=== PATIENT | male | born 1995 | race Caucasian/White ===

== ENCOUNTER 2018-08-13 21:18 | Emergency (ER) | payer MEDICAID, OTHER ==
[~2018-08-13] VITALS: Ht 160 cm; Wt 62.6 kg
[2018-08-13] MEDS ORDERED: ACETAMINOPHEN ES 500 MG TABLET PO ONE (21:30)
[2018-08-13] MEDS ORDERED: IBUPROFEN 600 MG TABLET PO ONE ×2 (21:30→21:50)
[2018-08-13] MEDS ORDERED: IV NS 0.9% 1,000 ML BAG IV ONE (21:30)
--- NOTE | 2018-08-13 21:40 | NUR ---
PT PRESENTED TO THE ER WITH A C/O UNWITNESSED SYNCOPE. PT IS NOT SURE IF HE HIT HIS HEAD OR NOT. PT IS AA&O X4. PT IS ON THE MONITOR AND CONTINUOUS PULSE OX. 20G IV LAC STARTED. BLOOD WAS DRAWN AND SENT TO LAB.
[2018-08-13 21:47] LABS: BASOPHILS % (AUTO) 0.5 % (0.0-2.0); EOSINOPHILS % (AUTO) 0.2 % (0.0-6.0); HEMATOCRIT 46 % (39-51); HEMOGLOBIN 15.9 g/dL (13.5-17.5); LYMPHOCYTES # (AUTO) 0.8 /CMM (0.8-4.8); LYMPHOCYTES % (AUTO) 11.3 % (20.0-44.0); MEAN CORPUSCULAR HGB CONC 35 g/dl (31.0-36.0); MEAN CORPUSCULAR VOLUME 80 fL (80-96); MONOCYTES # (AUTO) 1.1 /CMM (0.1-1.30); MONOCYTES % (AUTO) 15.8 % (2.0-12.0); NEUTROPHILS # (AUTO) 5.1 /CMM (1.8-8.9); NEUTROPHILS % (AUTO) 72.2 % (43.0-81.0); PLATELET COUNT (AUTO) 202 /CMM (150-450)
[2018-08-13] MEDS ORDERED: ACETAMINOPHEN ES 500 MG TABLET ONE (21:50)
[2018-08-13 21:55] LABS: CALCIUM, SERUM 9.8 mg/dL (8.5-10.1); CREATININE 1.1 mg/dL (0.6-1.3); POTASSIUM 3.8 mmol/L (3.5-5.1)
[2018-08-13 22:01] LABS: ALBUMIN 4.8 g/dL (3.4-5.0); BILIRUBIN,DIRECT 0.1 mg/dL (0.0-0.2); BILIRUBIN,TOTAL 0.6 mg/dL (0.2-1.0); TOTAL PROTEIN, SERUM 8.8 g/dL (6.4-8.2)
[2018-08-13 23:35] VITALS: BP 128/85
== END 2018-08-13 23:36 | disposition home or self-care (01) ==
LOC: ER 21:21
DX: R55 Syncope and collapse (principal); R50.9 Fever, unspecified
CPT/HCPCS: 36415; 80048; 80076; 85025; 87804 ×2; 93005; 96360; 96361; 99284; A4606; J7030; 87400

== ENCOUNTER 2020-10-02 00:57 | Emergency (ER) | payer MEDICAID ==
[~2020-10-02] VITALS: Ht 160 cm; Wt 62.6 kg
[2020-10-02 00:57] VITALS: BP 130/80
--- NOTE | 2020-10-02 01:00 | NUR ---
Pt bibRA c/o left wrist lac s/p falling into escalator. Pt aaox2 breathing evenly and unlabored. Pt appears to be intoxicated and not able to answer questions about how the event occured. Pt has various lacs on left wrist at varying lenghts. Emt at bedside for wound care. Pt attached to monitor and pox. [place] and call light within reach.
--- NOTE | 2020-10-02 01:27 | NUR ---
Brain suarez in ED - 10/02/20 at 0132 by JOVANI [facility].
[2020-10-02] MEDS ORDERED: LIDOCAINE HCL/PF 1% 30 ML VIAL IM ONE (01:30)
[2020-10-02] MEDS ORDERED: TDAP [DIPH/PERTUSSIS/TET] 0.5 ML VIAL IM ONE ×2 (01:30→01:32)
[2020-10-02] MEDS ORDERED: LIDOCAINE HCL/MPF 1% 30 ML VIAL IJ ONE (01:32)
--- NOTE | 2020-10-02 03:58 | NUR ---
PATIENT STATES THAT HE WANTS TO LEAVE. MD NOTIFIED. PATIENT CAN BE DISCHARGED WITH A LASTING MACHINE OPERATOR, BUT NOT DISCHARGED ALONE.
--- NOTE | 2020-10-02 04:02 | NUR ---
PATIENT PROVIDED NUMBER, STEVO HUNTER- SISTER'S NUMBER: [phone]. LEFT VOICEMAIL.
--- NOTE | 2020-10-02 04:04 | NUR ---
NO ANSWER FROM STEVO HUNTER, LEFT VOICEMAIL.
--- NOTE | 2020-10-02 05:42 | NUR ---
ATTEMPTED TO CONTACT PT'S SISTER. NO ANSWER, STRAIGHT TO VOICEMAIL. LEFT MESSAGE, WILL FOLLOW UP
--- NOTE | 2020-10-02 06:22 | NUR ---
Patient discharged to home in stable condition. Written and verbal after care instructions given. Patient verbalizes understanding of instruction.
--- NOTE | 2020-10-02 06:22 | NUR ---
PATIENT AMBULATORY WITH A STEADY GAIT.
== END 2020-10-02 06:24 | disposition home or self-care (01) ==
LOC: ER 01:01
DX: S61.512A Laceration without foreign body of left wrist, initial encounter (principal); S50.812A Abrasion of left forearm, initial encounter; F10.129 Alcohol abuse with intoxication, unspecified; W23.0XXA Caught, crushed, jammed, or pinched between moving objects, initial encounter; Y93.89 Activity, other specified; Y92.89 Other specified places as the place of occurrence of the external cause; Y99.8 Other external cause status; Y90.9 Presence of alcohol in blood, level not specified
CPT/HCPCS: 12002; 73090; 73110; 90471; 90715; 99284; J3490 ×2